=== PATIENT | female | born 1995 | race African-American/Black ===

== ENCOUNTER 2016-08-28 02:55 | Emergency (ER) | payer OTHER ==
[2016-08-28 04:04] LABS: Bilirubin Negative (Negative); Blood, Urine Moderate (Negative); Glucose, Urine (Dipstick) Negative (Negative); Ketone, Urine Negative (Negative); Nitrite Negative (Negative); Protein, Urine (Dipstick) Trace mg/dL (Neg-Trace)
[2016-08-28 04:09] LABS: Bacteria/HPF Rare-Few HPF (None Seen); WBC/HPF 0-3 HPF (0-3)
== END 2016-08-28 05:38 | disposition short-term general hospital (02) ==
LOC: NAV ERS 02:55
DX: O99.89 Other specified diseases and conditions complicating pregnancy, childbirth and the puerperium (principal); R10.2 Pelvic and perineal pain; Z3A.01 Less than 8 weeks gestation of pregnancy
CPT/HCPCS: 36415; 81003; 81015; 81025; 84702; 86900; 86901; 87480; 87491; 87510; 87591; 87660; 99284